=== PATIENT | female | born 1930 | race Caucasian/White ===

== ENCOUNTER 2018-11-24 12:32 | Inpatient (IN) | payer OTHER, MEDICARE ==
[2018-11-24 12:52] LABS: ADD MAN DIFF? NO
[2018-11-24 13:16] LABS: ABNORMAL IP MESSAGE 1; BASOPHILS % 0.4 % (0.0-2.0); HEMATOCRIT 35.1 % (37.0-47.0); HEMOGLOBIN 10.7 g/dl (12.0-16.0); LYMPHOCYTES # 0.4 10^3/ul (0.8-2.9); LYMPHOCYTES % 5.4 % (15.0-51.0); MEAN CORPUSCULAR HGB CONC 30.5 g/dl (32.0-37.0); MEAN CORPUSCULAR VOLUME 91.9 fl (82.0-101.0); MEAN PLATELET VOLUME 10.1 fl (7.4-10.4); MONOCYTE # 0.7 10^3/ul (0.3-0.9); MONOCYTES % 8.8 % (0.0-11.0); NEUTROPHIL # 6.5 10^3/ul (1.6-7.5); PLATELET COUNT 241 10^3/UL (140-415); RED BLOOD COUNT 3.82 10^6/ul (4.20-5.40); RED CELL DISTRIBUTION WIDTH 18.1 % (11.5-14.5)
[2018-11-24 13:16] LABS: WHITE BLOOD COUNT 7.6 10^3/ul (4.8-10.8)
[2018-11-24 13:18] LABS: POSITIVE DIFF @See below
[2018-11-24 13:35] LABS: INR 1.14; PROTIME 14.7 Sec (11.9-14.9); PT RATIO 1.1
[2018-11-24 13:36] LABS: PARTIAL THROMBOPLASTIN TIME 24.9 Sec (23.0-35.0)
[2018-11-24] MEDS: ALBUTEROL 0.083% (NEB) 2.5 MG/3 ML AMP NEB (13:56)
[2018-11-24] MEDS: IPRATROPIUM (NEB) 0.5 MG/2.5 ML AMP NEB (13:56)
[2018-11-24 14:19] LABS: ANION GAP 12 (5-13); BLOOD UREA NITROGEN 17 mg/dl (7-20); CALCIUM 9.3 mg/dl (8.4-10.2); CARBON DIOXIDE 25 mmol/L (21-31); CHLORIDE 98 mmol/L (97-110); CREATININE 0.47 mg/dl (0.44-1.00); GLUCOSE 123 mg/dl (70-220); POTASSIUM 4.1 mmol/L (3.5-5.1); SODIUM 135 mmol/L (135-144)
[2018-11-24 14:31] LABS: TROPONIN-I 0.025 ng/ml (0.000-0.120)
[2018-11-24] MEDS ORDERED: ACETAMINOPHEN 325 MG TAB PO ×2 (15:00)
[2018-11-24] MEDS ORDERED: ONDANSETRON 4 MG INJ IV ×2 (15:00)
[2018-11-24] MEDS: FUROSEMIDE 20 MG INJ IV (15:08)
[2018-11-24 15:14] LABS: B-TYPE NATRIURETIC PEPTIDE 3890 PG/ML (0-450)
[2018-11-24] MEDS ORDERED: FAMOTIDINE 20 MG TAB PO (15:30)
[2018-11-24] MEDS ORDERED: NACL 0.9% 3 ML SYG IV (15:30)
[2018-11-24] MEDS: WARFARIN 5 MG TAB PO (18:24)
[2018-11-24] MEDS: FAMOTIDINE 20 MG TAB PO (18:24)
[2018-11-24] MEDS: LISINOPRIL 20 MG TAB PO (18:25)
[2018-11-24 19:50] LABS: CREATINE KINASE 211 IU/L (23-200)
[2018-11-24 20:03] LABS: CK INDEX 1.6; CK-MB 3.41 ng/ml (0.0-2.4); TROPONIN-I 0.026 ng/ml (0.000-0.120)
[2018-11-24] MEDS: DAPSONE 100 MG TAB PO (20:44)
[2018-11-24] MEDS: FUROSEMIDE 40 MG INJ IV (20:45)
[2018-11-25] MEDS: QUETIAPINE 25 MG TAB PO ×2 (00:01→19:09)
[2018-11-25 01:03] LABS: CREATINE KINASE 306 IU/L (23-200)
[2018-11-25 01:14] LABS: CK INDEX 1.3; CK-MB 3.89 ng/ml (0.0-2.4); TROPONIN-I 0.033 ng/ml (0.000-0.120)
[2018-11-25 06:30] LABS: ADD MAN DIFF? NO
[2018-11-25 06:36] LABS: ABNORMAL IP MESSAGE 1; BASOPHILS % 0.5 % (0.0-2.0); HEMATOCRIT 30.7 % (37.0-47.0); HEMOGLOBIN 9.9 g/dl (12.0-16.0); LYMPHOCYTES # 0.4 10^3/ul (0.8-2.9); LYMPHOCYTES % 6.4 % (15.0-51.0); MEAN CORPUSCULAR HEMOGLOBIN 28.2 pg (29.0-33.0); MEAN CORPUSCULAR HGB CONC 32.2 g/dl (32.0-37.0); MEAN CORPUSCULAR VOLUME 87.5 fl (82.0-101.0); MEAN PLATELET VOLUME 9.7 fl (7.4-10.4); MONOCYTE # 0.6 10^3/ul (0.3-0.9); MONOCYTES % 10.6 % (0.0-11.0); NEUTROPHIL # 4.9 10^3/ul (1.6-7.5); NEUTROPHILS % 82.2 % (39.0-77.0); PLATELET COUNT 196 10^3/UL (140-415); RED BLOOD COUNT 3.51 10^6/ul (4.20-5.40); RED CELL DISTRIBUTION WIDTH 17.9 % (11.5-14.5)
[2018-11-25] MEDS: LEVOTHYROXINE 100 MCG TAB PO (06:36)
[2018-11-25 06:41] LABS: POSITIVE DIFF @See below
[2018-11-25 07:08] LABS: ANION GAP 8 (5-13); BLOOD UREA NITROGEN 22 mg/dl (7-20); CALCIUM 8.8 mg/dl (8.4-10.2); CARBON DIOXIDE 30 mmol/L (21-31); CHLORIDE 96 mmol/L (97-110); CREATININE 0.64 mg/dl (0.44-1.00); GLUCOSE 108 mg/dl (70-220); MAGNESIUM 1.9 mg/dl (1.7-2.5); PHOSPHORUS 4.1 mg/dl (2.5-4.9); POTASSIUM 3.2 mmol/L (3.5-5.1); SODIUM 134 mmol/L (135-144)
[2018-11-25 08:00] LABS: HEMOGLOBIN A1C 4.7 % (0-5.9)
[2018-11-25] MEDS: METOPROLOL (XL) 50 MG TAB PO ×2 (08:39→21:22)
[2018-11-25] MEDS: POTASSIUM CHLORIDE (SR) 20 MEQ TAB PO ×3 (08:39→21:22)
[2018-11-25] MEDS: AMLODIPINE 2.5 MG TAB PO (08:40)
[2018-11-25] MEDS: LISINOPRIL 20 MG TAB PO (08:40)
[2018-11-25] MEDS: DAPSONE 100 MG TAB PO (08:40)
[2018-11-25] MEDS: FUROSEMIDE 40 MG INJ IV ×2 (09:29→21:23)
[2018-11-25] MEDS: ENOXAPARIN 40 MG/0.4 ML SYG SC (09:30)
[2018-11-25] MEDS: FAMOTIDINE 20 MG TAB PO (16:46)
[2018-11-25] MEDS: MAGNESIUM SULFATE 2 GM/50 ML 50 ML IVPB (18:21)
[2018-11-25] MEDS: LORAZEPAM 2 MG INJ IV (21:17)
[2018-11-26 00:48] LABS: ADD UMIC YES; UR ASCORBIC ACID NEGATIVE (NEGATIVE); UR BILIRUBIN (Dip) NEGATIVE (NEGATIVE); UR BLOOD (Dip) NEGATIVE (NEGATIVE); UR CLARITY CLEAR (CLEAR); UR COLOR YELLOW (YELLOW); UR GLUCOSE (Dip) NEGATIVE (NEGATIVE); UR KETONES (Dip) NEGATIVE (NEGATIVE); UR LEUKOCYTE ESTERASE (Dip) NEGATIVE Leu/ul (NEGATIVE); UR NITRITE (Dip) NEGATIVE (NEGATIVE); UR RBC 2 /HPF (0-5); UR SPECIFIC GRAVITY (Dip) 1.013 (1.003-1.030); UR TOTAL PROTEIN (Dip) 1+ mg/dl (NEGATIVE); UR UROBILINOGEN (Dip) NEGATIVE (NEGATIVE); UR WBC 0 /HPF (0-5)
[2018-11-26 06:08] LABS: ANION GAP 7 (5-13); BLOOD UREA NITROGEN 27 mg/dl (7-20); CALCIUM 8.4 mg/dl (8.4-10.2); CARBON DIOXIDE 36 mmol/L (21-31); CHLORIDE 96 mmol/L (97-110); CREATININE 0.67 mg/dl (0.44-1.00); GLUCOSE 83 mg/dl (70-220); POTASSIUM 3.4 mmol/L (3.5-5.1); SODIUM 139 mmol/L (135-144)
[2018-11-26] MEDS: FUROSEMIDE 40 MG INJ IV (09:16)
[2018-11-26] MEDS: LEVOTHYROXINE 100 MCG TAB PO (09:19)
[2018-11-26] MEDS: POTASSIUM CHLORIDE (SR) 20 MEQ TAB PO ×3 (09:20→20:56)
[2018-11-26] MEDS: LISINOPRIL 20 MG TAB PO (09:20)
[2018-11-26] MEDS: DAPSONE 100 MG TAB PO (09:21)
[2018-11-26] MEDS: AMLODIPINE 2.5 MG TAB PO (09:21)
[2018-11-26] MEDS: METOPROLOL (XL) 50 MG TAB PO ×2 (09:22→20:56)
[2018-11-26] MEDS: ENOXAPARIN 40 MG/0.4 ML SYG SC (09:28)
[2018-11-26] MEDS: BUMETANIDE 3 MG in DEXTROSE 5% 18 ML IV (13:43)
[2018-11-26] MEDS: FAMOTIDINE 20 MG TAB PO (17:51)
[2018-11-26] MEDS: HALOPERIDOL 5 MG INJ IV (23:23)
[2018-11-27] MEDS: FUROSEMIDE 40 MG INJ IV (06:09)
[2018-11-27] MEDS: LEVOTHYROXINE 100 MCG TAB PO (06:11)
[2018-11-27 06:27] LABS: ANION GAP 6 (5-13); BLOOD UREA NITROGEN 27 mg/dl (7-20); CALCIUM 8.6 mg/dl (8.4-10.2); CARBON DIOXIDE 35 mmol/L (21-31); CHLORIDE 98 mmol/L (97-110); CREATININE 0.56 mg/dl (0.44-1.00); GLUCOSE 86 mg/dl (70-220); POTASSIUM 3.5 mmol/L (3.5-5.1); SODIUM 139 mmol/L (135-144)
[2018-11-27] MEDS: DAPSONE 100 MG TAB PO (10:36)
[2018-11-27] MEDS: POTASSIUM CHLORIDE (SR) 20 MEQ TAB PO ×2 (10:37→20:37)
[2018-11-27] MEDS: AMLODIPINE 2.5 MG TAB PO (10:37)
[2018-11-27] MEDS: METOPROLOL (XL) 50 MG TAB PO ×2 (10:37→20:39)
[2018-11-27] MEDS: LISINOPRIL 20 MG TAB PO (10:37)
[2018-11-27] MEDS: ENOXAPARIN 40 MG/0.4 ML SYG SC (11:15)
[2018-11-27] MEDS: BUMETANIDE 6 MG in DEXTROSE 5% 36 ML IV (11:42)
[2018-11-27] MEDS: ALBUTEROL/IPRATROPIUM (NEB) 3 ML AMP HHN (12:12)
[2018-11-27] MEDS: FAMOTIDINE 20 MG TAB PO (17:55)
[2018-11-27] MEDS: HALOPERIDOL 5 MG INJ IV (20:40)
[2018-11-27] MEDS: QUETIAPINE 25 MG TAB PO (23:36)
[2018-11-28] MEDS: ALBUTEROL/IPRATROPIUM (NEB) 3 ML AMP HHN (01:44)
[2018-11-28] MEDS: HALOPERIDOL 5 MG INJ IV (03:26)
[2018-11-28] MEDS ORDERED: HYDROCODONE/APAP (5/325) TAB PO ×2 (04:00)
[2018-11-28] MEDS: LEVOTHYROXINE 100 MCG TAB PO (06:35)
[2018-11-28 07:17] LABS: ANION GAP 8 (5-13); BLOOD UREA NITROGEN 23 mg/dl (7-20); CARBON DIOXIDE 38 mmol/L (21-31); CHLORIDE 91 mmol/L (97-110); CREATININE 0.59 mg/dl (0.44-1.00); GLUCOSE 113 mg/dl (70-220); POTASSIUM 3.3 mmol/L (3.5-5.1); SODIUM 137 mmol/L (135-144)
[2018-11-28] MEDS: POTASSIUM CHLORIDE (SR) 20 MEQ TAB PO ×3 (09:00→21:00)
[2018-11-28] MEDS: LISINOPRIL 20 MG TAB PO (09:41)
[2018-11-28] MEDS: METOPROLOL (XL) 50 MG TAB PO ×2 (09:42→21:00)
[2018-11-28] MEDS: AMLODIPINE 2.5 MG TAB PO (09:42)
[2018-11-28] MEDS: DAPSONE 100 MG TAB PO (09:42)
[2018-11-28] MEDS: ENOXAPARIN 40 MG/0.4 ML SYG SC (09:58)
[2018-11-28] MEDS ORDERED: BUMETANIDE 3 MG in DEXTROSE 5% 18 ML IV (11:00)
[2018-11-28] MEDS: BUMETANIDE 6 MG in DEXTROSE 5% 36 ML IV (17:00)
[2018-11-28] MEDS: FAMOTIDINE 20 MG TAB PO (17:00)
[2018-11-29] MEDS: LEVOTHYROXINE 100 MCG TAB PO (06:37)
[2018-11-29] MEDS: METOPROLOL (XL) 50 MG TAB PO (09:49)
[2018-11-29] MEDS: AMLODIPINE 2.5 MG TAB PO (09:49)
[2018-11-29] MEDS: LISINOPRIL 20 MG TAB PO (09:50)
[2018-11-29] MEDS: DAPSONE 100 MG TAB PO (09:50)
[2018-11-29] MEDS: ENOXAPARIN 40 MG/0.4 ML SYG SC (10:05)
[2018-11-29] MEDS: POTASSIUM CHLORIDE 20 MEQ POWDER FOR ORAL SOLN PO (11:27)
[2018-11-29] MEDS: BUMETANIDE 3 MG in DEXTROSE 5% 18 ML IV (11:40)
[2018-11-29] MEDS: ALBUTEROL/IPRATROPIUM (NEB) 3 ML AMP HHN (16:59)
[2018-11-29] MEDS ORDERED: BUMETANIDE 1 MG TAB PO (18:00)
== END 2018-11-29 17:25 | DRG 913 ==
LOC: E/R 12:32 → 6WM 14:55
PROVIDERS: Internal Medicine
DX: S09.90XA Unspecified injury of head, initial encounter (principal); I50.33 Acute on chronic diastolic (congestive) heart failure; J96.01 Acute respiratory failure with hypoxia; I11.0 Hypertensive heart disease with heart failure; Z79.02 Long term (current) use of antithrombotics/antiplatelets; W19.XXXA Unspecified fall, initial encounter; E03.9 Hypothyroidism, unspecified; G30.9 Alzheimer's disease, unspecified; F02.80 Dementia in other diseases classified elsewhere, unspecified severity, without behavioral disturbance, psychotic disturbance, mood disturbance, and anxiety; E87.5 Hyperkalemia; I36.1 Nonrheumatic tricuspid (valve) insufficiency; I34.0 Nonrheumatic mitral (valve) insufficiency
CPT/HCPCS: 36415; 70450; 71045; 80048; 81001; 82550; 82553; 83036; 83735; 83880; 84100; 84484; 85025; 85610; 85730; 87070; 87086; 90686; 93005; 93306; 94640; 94664; 97110; 97116; 97161; 97530; 99285-25; G0378